=== PATIENT | female | born 1995 | race Caucasian/White ===

== ENCOUNTER 2018-07-02 18:52 | Emergency (ER) | payer MEDICAID ==
[2018-07-02 18:56] VITALS: BP 100/63; TEMP 97.5
[2018-07-02 19:39] LABS: BASO % 0.1 % (0.0-2.0); GRAN # 8.6 (1.4-6.5); GRAN % 91.2 % (42.2-75.2); HEMATOCRIT 38.1 % (37.0-47.0); HEMOGLOBIN 12.2 g/dl (12.5-16.0); LYMPH # 0.5 (1.2-3.4); LYMPH % 5.7 % (20.0-51.0); MEAN CELL VOLUME 90 fl (80.0-100.0); MEAN CORPUSCULAR HEMOGLOBIN 29 pg (27.0-31.0); MEAN CORPUSCULAR HGB CONC 32 g/dl (33.0-37.0); MEAN PLATELET VOLUME 10.4 fl (7.4-10.4); MONO # 0.3 (0.1-0.6); MONO % 2.9 % (1.7-9.3); PLATELET COUNT 244 K/mm3 (130-400); RED BLOOD COUNT 4.23 M/mm3 (4.10-5.30); REDCELL DISTRIBUTION WIDTH-CV 14.4 % (11.5-14.5)
[2018-07-02 19:49] LABS: ALBUMIN 4.5 gm/dL (3.5-5.0); BILIRUBIN,TOTAL 0.5 mg/dL (0.0-1.0); CALCIUM 9.3 mg/dL (8.4-10.2); CREATININE, serum 0.39 mg/dL (0.52-1.25); POTASSIUM 3.8 mmol/L (3.4-5.0); TOTAL PROTEIN 8.1 gm/dL (6.4-8.2)
[2018-07-02 19:53] LABS: COLLECTION METHOD CLEAN CATCH
[2018-07-02 20:03] LABS: MUCOUS Present /lpf; PH 5 (5-8); SQUAMOUS EPITHELIAL 0-2 /hpf; URINE APPEARANCE Clear; URINE BACTERIA None Seen /hpf; URINE BILIRUBIN Negative (NEGATIVE); URINE BLOOD Negative (NEGATIVE); URINE COLOR Yellow; URINE GLUCOSE Negative (NEGATIVE); URINE KETONE Trace (NEGATIVE); URINE LEUKOCYTE ESTERASE Negative (NEGATIVE); URINE NITRATE Negative (NEGATIVE); URINE PROTEIN(semi-quant) 1+ (NEGATIVE); URINE RBC 0-2 /hpf; URINE UROBILINOGEN Negative (NEGATIVE)
[2018-07-02] MEDS ORDERED: ZOFRAN ODT4 MG PO (20:12)
[2018-07-02 20:36] VITALS: PULSE 94
== END 2018-07-02 20:36 | disposition home or self-care (01) ==
LOC: COL.ER 18:52
PROVIDERS: Emergency Medicine
DX: O21.9 Vomiting of pregnancy, unspecified (principal); Z3A.00 Weeks of gestation of pregnancy not specified
CPT/HCPCS: J2765; J3010; J7030

== ENCOUNTER 2018-09-12 00:28 | Emergency (ER) | payer MEDICAID ==
[~2018-09-12] VITALS: Ht 162.6 cm; Wt 52.3 kg
[~2018-09-12 00:28] MED LIST: ZOFRAN ODT4 MG PO
[2018-09-12 00:44] VITALS: BP 108/65; TEMP 97.8
[2018-09-12 01:21] LABS: COLLECTION METHOD CLEAN CATCH
[2018-09-12 01:26] LABS: MUCOUS Present /lpf; PH 7 (5-8); SQUAMOUS EPITHELIAL 0-2 /hpf; URINE APPEARANCE Clear; URINE BACTERIA Rare /hpf; URINE BILIRUBIN Negative (NEGATIVE); URINE BLOOD Negative (NEGATIVE); URINE COLOR Yellow; URINE GLUCOSE Negative (NEGATIVE); URINE KETONE Negative (NEGATIVE); URINE LEUKOCYTE ESTERASE Negative (NEGATIVE); URINE NITRATE Negative (NEGATIVE); URINE PROTEIN(semi-quant) 2+ (NEGATIVE); URINE UROBILINOGEN Negative (NEGATIVE)
[2018-09-12] MEDS ORDERED: FLAGYL500 MG PO (02:09)
[2018-09-12 02:30] VITALS: PULSE 73
== END 2018-09-12 02:30 | disposition home or self-care (01) ==
LOC: COL.ER 00:28 → LDRO 00:28 → EDSTATUS 00:37 → COL.ER 02:30
PROVIDERS: Nurse Practitioner
DX: O23.592 Infection of other part of genital tract in pregnancy, second trimester (principal); Z3A.19 19 weeks gestation of pregnancy

== ENCOUNTER 2018-09-30 22:44 | Emergency (ER) | payer MEDICAID ==
[~2018-09-30 22:44] MED LIST changes: +FLAGYL500 MG PO
[2018-09-30 22:47] VITALS: TEMP 99.1
[2018-09-30 23:33] LABS: BASO % 0.2 % (0.0-2.0); EOS % 0.2 % (0-4.0); GRAN # 7.3 (1.4-6.5); GRAN % 85.8 % (42.2-75.2); HEMATOCRIT 34.8 % (37.0-47.0); HEMOGLOBIN 11.1 g/dl (12.5-16.0); LYMPH # 0.4 (1.2-3.4); LYMPH % 4.2 % (20.0-51.0); MEAN CELL VOLUME 93 fl (80.0-100.0); MEAN CORPUSCULAR HEMOGLOBIN 30 pg (27.0-31.0); MEAN CORPUSCULAR HGB CONC 32 g/dl (33.0-37.0); MEAN PLATELET VOLUME 10.7 fl (7.4-10.4); MONO # 0.8 (0.1-0.6); PLATELET COUNT 172 K/mm3 (130-400); RED BLOOD COUNT 3.73 M/mm3 (4.10-5.30); REDCELL DISTRIBUTION WIDTH-CV 14.4 % (11.5-14.5)
[2018-09-30 23:40] LABS: ALBUMIN 3.7 gm/dL (3.5-5.0); BILIRUBIN,TOTAL 0.3 mg/dL (0.0-1.0); C-REACTIVE PROTEIN 2.1 mg/dL (0.0-0.9); CALCIUM 8.7 mg/dL (8.4-10.2); CREATININE, serum 0.42 mg/dL (0.52-1.25); TOTAL PROTEIN 7.1 gm/dL (6.4-8.2)
[2018-10-01 00:01] LABS: COLLECTION METHOD CLEAN CATCH
[2018-10-01 00:09] LABS: MUCOUS Present /lpf; PH 5 (5-8); SQUAMOUS EPITHELIAL 0-2 /hpf; URINE APPEARANCE Hazy; URINE BACTERIA None Seen /hpf; URINE BILIRUBIN Negative (NEGATIVE); URINE BLOOD Negative (NEGATIVE); URINE COLOR Amber; URINE GLUCOSE Negative (NEGATIVE); URINE KETONE Negative (NEGATIVE); URINE LEUKOCYTE ESTERASE Negative (NEGATIVE); URINE NITRATE Negative (NEGATIVE); URINE PROTEIN(semi-quant) Negative (NEGATIVE); URINE RBC 0-2 /hpf; URINE UROBILINOGEN Negative (NEGATIVE)
[2018-10-01] MEDS ORDERED: PROTONIX20 MG PO (02:03)
[2018-10-01 02:49] VITALS: BP 110/64; PULSE 120
== END 2018-10-01 02:50 | disposition home or self-care (01) ==
LOC: COL.ER 22:44
PROVIDERS: Nurse Practitioner
DX: R19.7 Diarrhea, unspecified (principal); R10.11 Right upper quadrant pain
CPT/HCPCS: J2405; J2765; J3010; J7030

== ENCOUNTER 2019-01-31 07:24 | Inpatient (IN) | payer MEDICAID ==
[~2019-01-31] VITALS: Ht 160 cm; Wt 62.3 kg
[2019-01-31] VITALS (34 sets, daily range): BP systolic 92–171; BP diastolic 49–80; PULSE 75–109; TEMP 97.1–98.6
[~2019-01-31 07:24] MED LIST changes: +PROTONIX20 MG PO
--- NOTE | 2019-01-31 07:45 | NUR ---
Pt arrives on unit ambulatory with spouse for induction of labor. G3L2 at 39.1 weeks gestation. Changed into clean gown. Non-greenlandic speaking. Field Service Tech used for admission process. EFM and toco applied. VSS. IV started in LW. Labs drawn. LR infusing. Admission assessment completed. Consents signed. Pt oriented to room. Updated on POC. Bed locked in low position. Call light within reach. No questions or concerns at this time. 0830-Dr. Hernandez at bedside. SVE per provider 2-/-2. SROM of clear fluid performed. Pericare provided.
[2019-01-31] MEDS ORDERED: PRENATAL MVI (08:23)
[2019-01-31 08:56] LABS: MEAN CELL VOLUME 80 fl (80.0-100.0); MEAN CORPUSCULAR HGB CONC 30 g/dl (33.0-37.0); MEAN PLATELET VOLUME 10.6 fl (7.4-10.4); PLATELET COUNT 229 K/mm3 (130-400); RED BLOOD COUNT 4.08 M/mm3 (4.10-5.30); REDCELL DISTRIBUTION WIDTH-CV 16.8 % (11.5-14.5)
[2019-01-31 09:03] LABS: HEMATOCRIT 32.6 % (37.0-47.0); HEMOGLOBIN 9.8 g/dl (12.5-16.0); MEAN CORPUSCULAR HEMOGLOBIN 24 pg (27.0-31.0)
[2019-01-31 09:26] LABS: BAND 2 % (0-10); EOSINOPHIL 1 % (0-4); LYMPHOCYTE 24 % (20.0-51.0); MYELOCYTE 1 % (0-0); NEUTROPHILS 66 % (42.0-75.2); PLATELET ESTIMATE NORMAL (NORMAL)
--- NOTE | 2019-01-31 09:45 | NUR ---
Pt requesting epidural. Randa Keen CRNA notified.
--- NOTE | 2019-01-31 10:25 | NUR ---
Randa Keen, ALEJANDRINA at bedside with office clerk assistant. Pt uninterested in epidural placement at this time. Up to bathroom and back to birthing ball. No questions or concerns at this time.
--- NOTE | 2019-01-31 13:20 | NUR ---
Pt up to bathroom. Back to bed. Difficulty tracing FHR due to maternal position with contractions. RN at bedside adjusting monitors. Confirms maternal HR after ctx.
--- NOTE | 2019-01-31 13:53 | NUR ---
Pt off monitors to bathroom. Increase of pain. Translators used for communication. Denies pain medication. Pt told importance of monitors and use of pitocin. Back to bed. FHR tracing with maternal HR. SVE per this RN /-2.
--- NOTE | 2019-01-31 14:10 | NUR ---
Difficulty tracing FHR due to maternal position. Pt writhing in pain. Denies pain medication. RN at bedside. Maternal HR tracing. 1425-FSE placed. SVE per this RN 5-//-1
--- NOTE | 2019-01-31 15:18 | NUR ---
Pt with increase of pressure. SVE per this RN unchanged.
--- NOTE | 2019-01-31 15:20 | NUR ---
Pt calls out with increasing pressure. This RN and Dr. Hernandez at bedside. Vertex on perineum. 1522-Pt begins pushing. of viable male . Cord clamped x 2. Cut from umbilicus. dried and placed on mother's abdomen. Care of infant to Isabell Reardon RN. Apgars . 1527- of placenta. Fundus firm at umbilicus. Bleeding WNL. Perineum intact. Pericare performed. Ice pack applied. Bed locked in low position. Call light within reach.
[2019-02-01 00:40] VITALS: BP 93/51; PULSE 88; TEMP 98.2
[2019-02-01 07:31] VITALS: BP 113/72; PULSE 73; TEMP 97.4
--- NOTE | 2019-02-01 10:31 | NUR ---
Initial visit; Patient Polish speaking only. Patient was able to understand through Customs And Immigration Officer sign language who Customs And Immigration Officer was and that she was praying for patient and her who was transferred to [facility] in [place].
--- NOTE | 2019-02-01 11:22 | NUR ---
steelworker and nurse met with patient and provided information on [facility] lodging, utilizing the [employer] language line. Patient states she has transportation to [facility] on 02/02/19 and that her will not be going due to his work schedule. Patient was given the nursing unit phone number at [facility] and instructed to call them. Worker spoke with Julieta perinatal social worker at [facility] and provided the above information. Julieta made a referral to the [facility] for patient and family to stay.
== END 2019-02-01 12:15 | disposition home or self-care (01) | DRG 807 ==
LOC: LDR 07:24 → OB 07:34 → LDR 12:50 → OB 02-01 07:02
PROVIDERS: ADMIT Obstetrics & Gynecology
PROC: 10E0XZZ Delivery of Products of Conception, External Approach (ICD-10-PCS; principal; 2019-01-31)
PROC: 3E033VJ Introduction of Other Hormone into Peripheral Vein, Percutaneous Approach (ICD-10-PCS; 2019-01-31)
PROC: 10907ZC Drainage of Amniotic Fluid, Therapeutic from Products of Conception, Via Natural or Artificial Opening (ICD-10-PCS; 2019-01-31)
DX: O36.5930 Maternal care for other known or suspected poor fetal growth, third trimester, not applicable or unspecified (principal); Z37.0 Single live birth; O35.8XX0 Maternal care for other (suspected) fetal abnormality and damage, not applicable or unspecified; Z3A.39 39 weeks gestation of pregnancy
CPT/HCPCS: J2210; J2590; J7120

== ENCOUNTER 2022-02-08 01:02 | Emergency (ER) | payer MEDICAID ==
[~2022-02-08] VITALS: Ht 157.5 cm; Wt 45.5 kg
[~2022-02-08 01:02] MED LIST changes: +PRENATAL MVI
[2022-02-08 01:12] VITALS: TEMP 98.3
[2022-02-08 01:44] LABS: COLLECTION METHOD CLEAN CATCH
[2022-02-08 01:56] LABS: MUCOUS Present (NOT PRESENT); PH 7 (5-8); SQUAMOUS EPITHELIAL 0-2 /hpf (0-10); URINE APPEARANCE Hazy (CLEAR/HAZY); URINE BACTERIA Occasional /hpf (NONE SEEN); URINE BILIRUBIN Negative (NEGATIVE); URINE BLOOD Negative (NEGATIVE); URINE COLOR Yellow (YELLOW); URINE GLUCOSE Negative (NEGATIVE); URINE KETONE Negative (NEGATIVE); URINE LEUKOCYTE ESTERASE 2+ (NEGATIVE); URINE NITRATE Positive (NEGATIVE); URINE PROTEIN(semi-quant) Negative (NEGATIVE)
[2022-02-08] MEDS ORDERED: CEFTIN 250250 MG/TAB PO (02:37)
[2022-02-08 03:17] VITALS: BP 100/75; PULSE 68
== END 2022-02-08 03:17 | disposition home or self-care (01) ==
LOC: COL.ER 01:02
PROVIDERS: Nurse Practitioner
DX: N39.0 Urinary tract infection, site not specified (principal); N76.0 Acute vaginitis
CPT/HCPCS: J0696

== ENCOUNTER 2022-03-03 02:01 | Emergency (ER) | payer MEDICAID ==
[~2022-03-03] VITALS: Ht 162.6 cm; Wt 48.6 kg
[~2022-03-03 02:01] MED LIST changes: +CEFTIN 250250 MG/TAB PO
[2022-03-03 02:05] VITALS: BP 103/70; TEMP 97.9
[2022-03-03] MEDS ORDERED: PEN-VEE K500 MG PO (02:33)
[2022-03-03 03:00] VITALS: PULSE 84
== END 2022-03-03 03:00 | disposition home or self-care (01) ==
LOC: COL.ER 02:01
DX: K04.7 Periapical abscess without sinus (principal)

== ENCOUNTER 2022-03-12 23:58 | Emergency (ER) | payer MEDICAID ==
[~2022-03-12 23:58] MED LIST changes: +PEN-VEE K500 MG PO
[2022-03-13 00:31] VITALS: BP 138/89; TEMP 988.9
[2022-03-13] MEDS ORDERED: ZOFRAN 4MG T4 MG/TAB PO (00:42)
[2022-03-13] MEDS ORDERED: TORADOL 10MG TA10 MG PO (00:42)
[2022-03-13 01:15] VITALS: PULSE 94
== END 2022-03-13 01:15 | disposition home or self-care (01) ==
LOC: COL.ER
DX: U07.1 COVID-19 (principal); Z28.311 Partially vaccinated for COVID-19